=== PATIENT | male | born 1960 | race Caucasian/White ===

== ENCOUNTER 2017-10-22 10:49 | Emergency (ER) | payer OTHER ==
[~2017-10-22] VITALS: Ht 182.9 cm; Wt 88.2 kg
[2017-10-22] MEDS ORDERED: HTN PO (10:53)
[2017-10-22 12:36] VITALS: BP 149/80
== END 2017-10-22 12:46 | disposition home or self-care (01) ==
LOC: EMS 10:49
DX: S46.212A Strain of muscle, fascia and tendon of other parts of biceps, left arm, initial encounter (principal); S09.90XA Unspecified injury of head, initial encounter; F17.210 Nicotine dependence, cigarettes, uncomplicated; I10 Essential (primary) hypertension; Y04.0XXA Assault by unarmed brawl or fight, initial encounter; Y93.89 Activity, other specified; Y92.89 Other specified places as the place of occurrence of the external cause; Y99.8 Other external cause status
CPT/HCPCS: 99284; 99406

== ENCOUNTER 2018-01-03 22:04 | Emergency (ER) | payer OTHER ==
[~2018-01-03] VITALS: Ht 175.3 cm; Wt 86.4 kg
[~2018-01-03 22:04] MED LIST: HTN PO
[2018-01-03] MEDS ORDERED: LISI-662 PO (22:09)
[2018-01-03] MEDS ORDERED: AMLO-511 PO (22:09)
[2018-01-03 22:51] VITALS: BP 148/80
== END 2018-01-03 22:56 | disposition home or self-care (01) ==
LOC: EMS 22:05
DX: L03.011 Cellulitis of right finger (principal); I10 Essential (primary) hypertension; F17.210 Nicotine dependence, cigarettes, uncomplicated; Z79.899 Other long term (current) drug therapy
CPT/HCPCS: 99283; 99406

== ENCOUNTER 2018-02-27 22:23 | Emergency (ER) | payer OTHER ==
[~2018-02-27] VITALS: Ht 167.6 cm; Wt 88.2 kg
[~2018-02-27 22:23] MED LIST changes: +AMLO-511 PO; -HTN PO; +LISI-662 PO
[2018-02-28] MEDS ORDERED: DiphenhydrAMINE HCL 25 MG CAPSULE PO ONE (01:30)
[2018-02-28] MEDS ORDERED: PredniSONE 20 MG TABLET PO ONE (01:30)
[2018-02-28 01:42] VITALS: BP 156/92
== END 2018-02-28 02:30 | disposition home or self-care (01) ==
LOC: EMS 22:24
DX: L29.9 Pruritus, unspecified (principal); I10 Essential (primary) hypertension; F17.210 Nicotine dependence, cigarettes, uncomplicated
CPT/HCPCS: 99283; J7512

== ENCOUNTER 2019-02-07 22:03 | Emergency (ER) | payer OTHER ==
[~2019-02-07] VITALS: Ht 167.6 cm; Wt 92.7 kg
[~2019-02-07 22:03] MED LIST changes: -AMLO-511 PO; +AMLO5TAB9 PO
[2019-02-07] MEDS ORDERED: HYDR-4061 PO (22:52)
[2019-02-07] MEDS ORDERED: LOSA50TA64 PO (22:52)
[2019-02-07] MEDS ORDERED: MELO-107 PO (22:52)
[2019-02-07] MEDS ORDERED: HYDR25TA PO (22:52)
[2019-02-08] MEDS ORDERED: KETOROLAC TROMETHAMINE 60 MG/2 ML VIAL IM ONE
[2019-02-08 00:46] VITALS: BP 154/105
== END 2019-02-08 01:13 | disposition home or self-care (01) ==
LOC: EMS 22:04
DX: M25.511 Pain in right shoulder (principal); I10 Essential (primary) hypertension; F17.210 Nicotine dependence, cigarettes, uncomplicated; Z79.899 Other long term (current) drug therapy
CPT/HCPCS: 73030; 96372; 99283; 99406; J1885